=== PATIENT | female | born 1975 | race Caucasian/White ===

== ENCOUNTER 2016-08-29 11:56 | Emergency (ER) | payer OTHER ==
[~2016-08-29] VITALS: Wt 63.0 kg
[~2016-08-29 11:56] MED LIST: ASPI-664 PO; CIPR500T4 PO; DOCU-144 PO; HYDR-3498 PO; METO-448 PO; METR500T PO; NITR-58 PO; ORTNOV PO
[2016-08-29] MEDS ORDERED: ONDANSETRON 4 MG INJ IV STA (12:54)
[2016-08-29] MEDS ORDERED: morphine 4 MG/ML VIAL IV STA (12:54)
[2016-08-29 13:25] LABS: ADD UMIC YES; URINE BILIRUBIN (Dip) NEGATIVE (NEGATIVE); URINE BLOOD (Dip) 3+ (NEGATIVE); URINE COLOR LT. YELLOW (YELLOW); URINE GLUCOSE (Dip) NEGATIVE (NEGATIVE); URINE KETONES (Dip) NEGATIVE (NEGATIVE); URINE LEUKOCYTE ESTERASE (Dip) 1+ (NEGATIVE); URINE NITRITE (Dip) NEGATIVE (NEGATIVE); URINE TOTAL PROTEIN (Dip) NEGATIVE (NEGATIVE); URINE UROBILINOGEN (Dip) 0.2 E.U./dL (0.1-1.0)
[2016-08-29 13:32] LABS: BASOPHILS % 0.5 % (0.0-2.0); EOSINOPHILS # 0.1 10^3/ul (0.0-0.5); EOSINOPHILS % 1.3 % (0.0-7.0); HEMATOCRIT 44.6 % (37.0-47.0); HEMOGLOBIN 15.3 g/dl (12.0-16.0); LYMPHOCYTES # 1.4 10^3/ul (0.8-2.9); LYMPHOCYTES % 16.7 % (15.0-51.0); MEAN CORPUSCULAR HEMOGLOBIN 29.7 pg (29.0-33.0); MEAN CORPUSCULAR HGB CONC 34.2 g/dl (32.0-37.0); MEAN CORPUSCULAR VOLUME 86.8 fl (82.0-101.0); MONOCYTE # 0.6 10^3/ul (0.3-0.9); MONOCYTES % 6.9 % (0.0-11.0); NEUTROPHIL # 6.4 10^3/ul (1.6-7.5); NEUTROPHILS % 74.6 % (39.0-77.0); PLATELET COUNT 251 10^3/UL (140-440); RED BLOOD COUNT 5.14 10^6/ul (4.20-5.40); UNCORRECTED WBC 8.6 10^3/ul (4.8-10.8); WHITE BLOOD COUNT 8.6 10^3/ul (4.8-10.8)
[2016-08-29 13:35] LABS: ALBUMIN 4.9 g/dl (3.3-4.9); CONDITION 1
[2016-08-29 13:36] LABS: POTASSIUM 4.3 mmol/L (3.5-5.1)
--- NOTE | 2016-08-29 13:37 | ERD ---
ER Documentation Chief Complaint Date/Time DATE: 08/29/16 TIME: 13:35 Chief Complaint r. flank pain HPI This is a 40-year-old female who presents the emergency department today complaining of right-sided flank pain for the past 2 hours. She has some burning with urination. States that she took diclofenac with no improvement in symptoms.. Denies any nausea vomiting, fevers or chills. ROS All systems reviewed and are negative except as per history of present illness. Medications Home Meds Active Scripts Hydrocodone/Acetaminophen (Christine 5-325 Tablet) 1 Each Tablet, 1 TAB PO Q6H Y for PAIN, #10 TAB Prov:JORDAN JONES PA-C 08/29/16 Ciprofloxacin Hcl* (Ciprofloxacin Hcl*) 500 Mg Tablet, 500 MG PO BID for 7 Days , TAB Prov:JORDAN JONES PA-C 08/29/16 Nitrofurantoin Monohyd Macrocr* (Macrobid*) 100 Mg Capsr, 100 MG PO BID, #14 CAP Prov:MOON GRAHAM MD 03/19/16 Norethindrone-Ethinyl Estradiol ([facility]th[facility] ()) 0.035-1 Mg Tablet, 1 TAB PO DAILY for 28 Days, TAB Prov:MOON GRAHAM MD 03/19/16 Hydrocodone Bit-Acetaminophen* (Christine*) 5-325 Mg Tab, 1 TAB PO Q4H Y for PAIN LEVEL 6-10 for 7 Days, TAB Prov:FERNANDO LEE MD 09/21/15 Ciprofloxacin Hcl* (Ciprofloxacin Hcl*) 500 Mg Tablet, 500 MG PO BID, #14 TAB Prov:FERNANDO LEE MD 09/21/15 Metronidazole* (Flagyl*) 500 Mg Tablet, 500 MG PO Q8 for 7 Days, TAB Prov:FERNANDO LEE MD 09/21/15 Aspirin* (Aspirin* EC) 81 Mg Tabec, 81 MG PO DAILY for 30 Days, TAB Prov:FERNANDO LEE MD 09/21/15 Docusate Sodium* (Colace*) 100 Mg Capsule, 100 MG PO DAILY, #30 CAP Prov:FERNANDO LEE MD 09/21/15 Metoprolol Tartrate* (Lopressor*) 25 Mg Tab, 12.5 MG PO BID for 30 Days, TAB Prov:FERNANDO LEE MD 09/21/15 Allergies Allergies: Coded Allergies: No Known Allergy (Unverified , 08/29/16) PMhx/Soc History of Surgery: No Anesthesia Reaction: No Hx Neurological Disorder: No Hx Respiratory Disorders: No Hx Cardiac Disorders: No Hx Psychiatric Problems: No Hx Miscellaneous Medical Probl: No Hx Alcohol Use: No Hx Substance Use: No Hx Tobacco Use: No Physical Exam Vitals Vital Signs Date Time Temp Pulse Resp B/P Pulse Ox O2 Delivery O2 Flow Rate FiO2 08/29/16 11:57 99.1 80 20 138/83 100 Physical Exam Const: Mild distress Head: Atraumatic Eyes: Normal Conjunctiva ENT: Normal External Ears, Nose and Mouth. Neck: Full range of motion..~ No meningismus. Resp: Clear to auscultation bilaterally Cardio: Regular rate and rhythm, no murmurs Abd: Soft, non tender, non distended. Normal bowel sounds. No right lower quadrant pain. No tenderness to McBurney's. Skin: No petechiae or rashes Back: Right-sided flank pain. No CVA tenderness. No midline tenderness. Ext: No cyanosis, or edema Neur: Awake and alert Psych: Normal Mood and Affect Result Diagram: 08/29/16 1309 08/29/16 1309 Results 24 hrs Laboratory Tests Test 08/29/16 13:05 08/29/16 13:09 Urine Bacteria MODERATE Urine Bilirubin NEGATIVE Urine Clarity CLEAR Urine Color LT. YELLOW Urine Epithelial Cells MODERATE Urine Glucose NEGATIVE% Urine Hemoglobin 3+ Urine Ketones NEGATIVE Urine Leukocyte Esterase 1+ Urine Microscopic RBC 2-5/HPF Urine Microscopic WBC 25-50/HPF Urine Nitrite NEGATIVE Urine Specific Harrison <=1.005 Urine Total Protein NEGATIVE Urine Urobilinogen 0.2 E.U./dL Urine pH 6.0 Alanine Aminotransferase (ALT/SGPT) 39IU/L Albumin 4.9g/dl Albumin/Globulin Ratio 1.32 Alkaline Phosphatase 95IU/L Anion Gap 20 Aspartate Amino Transf (AST/SGOT) 31IU/L Basophils # 0.010^3/ul Basophils % 0.5% Blood Urea Nitrogen 12mg/dl Calcium Level 10.1mg/dl Carbon Dioxide Level 26mmol/L Chloride Level 100mmol/L Creatinine 0.71mg/dl Direct Bilirubin 0.00mg/dl Eosinophils # 0.110^3/ul Eosinophils % 1.3% Globulin 3.70g/dl Glucose Level 103mg/dl Hematocrit 44.6% Hemoglobin 15.3g/dl Indirect Bilirubin 0.3mg/dl Lymphocytes # 1.410^3/ul Lymphocytes % 16.7% Mean Corpuscular Hemoglobin 29.7pg Mean Corpuscular Hemoglobin Concent 34.2g/dl Mean Corpuscular Volume 86.8fl Mean Platelet Volume 9.0fl Monocytes # 0.610^3/ul Monocytes % 6.9% Neutrophils # 6.410^3/ul Neutrophils % 74.6% Nucleated Red Blood Cells # 0.010^3/ul Nucleated Red Blood Cells % 0.0/100WBC Platelet Count 95847^3/UL Potassium Level 4.3mmol/L Red Blood Count 5.1410^6/ul Red Cell Distribution Width 13.0% Sodium Level 142mmol/L Total Bilirubin 0.3mg/dl Total Protein 8.6g/dl White Blood Count 8.610^3/ul Current Medications Medications (Trade) Dose Ordered Sig/Hang Route PRN Reason Start Time Stop Time Status Last Admin Dose Admin Morphine Sulfate (morphine) 4 mg ONCE STAT IV 08/29/16 12:54 08/29/16 12:55 DC 08/29/16 13:11 Ondansetron HCl (Zofran Inj) 4 mg ONCE STAT IV 08/29/16 12:54 08/29/16 12:55 DC 08/29/16 13:10 Ceftriaxone Sodium (Rocephin) 1 gm ONCE ONCE IM 08/29/16 14:30 08/29/16 14:31 Lidocaine (Xylocaine 1% (Mdv) 20 ml) 20 ml ONCE ONCE SC 08/29/16 14:30 08/29/16 14:31 Procedures/MDM This is a 40-year-old female who presents to the emergency department today complaining of right-sided flank pain for the past 2 hours. Patient was in mild distress and had right-sided flank pain as well as some dysuria and therefore did obtain laboratory work. Laboratory work shows no elevated white blood cell count. She is not anemic. Platelets are within normal limits. Electrolytes are within normal limits. Glucose is within normal limits. Liver functions within normal limits. UA shows 1+ leukocyte Estrace and 25-50 microscopic white blood cells negative nitrites. Urine test is negative Patient is afebrile and she has no elevated white blood cell count however patient symptoms at this time is consistent with early pyelonephritis. I do not feel the patient requires CT scan at this time. Patient was given morphine and Zofran here in the emergency department and symptoms improved. Patient was sitting up on her phone. Patient was also given IM Rocephin here in the emergency department. She will be sent home on Cipro as well as a short course of Christine for pain. At this time the patient is stable for discharge and outpatient management. Patient should follow up with their PCP in the next 1-2 days. They may return to the emergency department sooner for any persistent or worsening of symptoms. Patient understood and agreed with the plan. I discussed the patient with Dr. Graham and he is in agreement with the plan. Departure Diagnosis: Primary Impression: Flank pain Condition: Fair JORDAN JONES PA-C Aug 29, 2016 13:37
[2016-08-29 13:38] LABS: ALBUMIN/GLOBULIN RATIO 1.32; BILIRUBIN,INDIRECT 0.3 mg/dl (0-1.1); BILIRUBIN,TOTAL 0.3 mg/dl (0.2-1.3); CREATININE 0.71 mg/dl (0.44-1.00); TOTAL PROTEIN 8.6 g/dl (6.1-8.1)
[2016-08-29 13:39] LABS: CALCIUM 10.1 mg/dl (8.4-10.2)
[2016-08-29 13:42] LABS: BACTERIA,URINE MODERATE
[2016-08-29] MEDS ORDERED: HYDR-906 PO (14:19)
[2016-08-29] MEDS ORDERED: CIPR500T4 PO (14:19)
[2016-08-29] MEDS ORDERED: CEFTRIAXONE 1 GM INJ IM ONE (14:30)
[2016-08-29] MEDS ORDERED: LIDOCAINE 1% (MDV) 20 ML INJ SC ONE (14:30)
[2016-08-29 14:38] VITALS: BP 129/75; PULSE 78; RESP 20; TEMP 99.1
== END 2016-08-29 14:39 | disposition home or self-care (01) ==
LOC: FTE 11:56
DX: R10.9 Unspecified abdominal pain (principal); Z79.82 Long term (current) use of aspirin
CPT/HCPCS: 80053; 81001; 85025; J0696; J2270; J2405; Z7610; 36415; 81003; 96372; 96374; 96375